=== PATIENT | male | born 1975 | race Caucasian/White ===

== ENCOUNTER 2017-07-09 19:16 | Inpatient (IN) | payer MEDICAID ==
[~2017-07-09] VITALS: Ht 188 cm; Wt 154.0 kg
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
[2017-07-09 19:49] LABS: I-STAT POTASSIUM 4.1 MMOL/L (3.5-4.9)
[2017-07-09 19:53] LABS: AUTOMATED NEUTROPHIL # 18.2 TH/MM3 (1.8-7.7); BASOPHIL % 0.1 % (0.0-2.0); EOSINOPHIL % 0.1 % (0.0-4.0); HEMATOCRIT 42.3 % (39.0-51.0); HEMO FLAGS DIFF FINAL; LYMPH % 4.4 % (9.0-44.0); LYMPHOCYTE # 0.9 TH/MM3 (1.0-4.8); MEAN CELL VOLUME 96.4 FL (80.0-100.0); MEAN CORPUSCULAR HEMOGLOBIN 32.5 PG (27.0-34.0); MEAN CORPUSCULAR HGB CONC 33.7 % (32.0-36.0); MONO % 6.6 % (0.0-8.0); NEUT % 88.8 % (16.0-70.0); PLATELET COUNT 270 TH/MM3 (150-450); RED BLOOD COUNT 4.39 MIL/MM3 (4.50-5.90); RED CELL DISTRIBUTION WIDTH 13.8 % (11.6-17.2); WHITE BLOOD COUNT 20.5 TH/MM3 (4.0-11.0)
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
[2017-07-09 20:04] LABS: APTT (PATIENT) 22.2 SEC (24.3-30.1); PROTHROMBIN TIME - PATIENT 10.6 SEC (9.8-11.6)
[2017-07-09] MEDS ORDERED: Post-op Orders (for Pharmacy) MISC XX ONE (20:15)
[2017-07-09] MEDS ORDERED: NALOXONE HCL 0.4 MG/ML AMP IV PUSH PRN (20:15)
[2017-07-09] MEDS ORDERED: SODIUM CHLORIDE 0.9% FLUSH 10 ML FLUSH IV FLUSH PRN (20:15)
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
[2017-07-09 20:59] VITALS: O2SAT 97
[2017-07-09 21:00] VITALS: BP 117/74; PULSE 108; RESP 32; TEMP 98; O2SAT 96
[2017-07-09] MEDS ORDERED: fentaNYL 75 MCG/HR PATCH T-DERMAL SCH (21:00)
[2017-07-09] MEDS: MORPHINE SULFATE 4 MG/ML INJ IV PUSH PRN (21:03)
[2017-07-09] MEDS: METHOCARBAMOL 500 MG TAB PO SCH (21:03)
[2017-07-09] MEDS: FAMOTIDINE 20 MG TAB PO SCH (21:03)
[2017-07-09] MEDS: ACETAMINOPHEN/HYDROcodone 325 MG/5 MG TAB PO PRN (21:19)
[2017-07-09] MEDS: SODIUM CHLORIDE 0.9% FLUSH 10 ML FLUSH IV FLUSH SCH (21:19)
[2017-07-09 22:00] VITALS: PULSE 106
[2017-07-09] MEDS: SODIUM CHLOR 0.9% 1000 ML INJ 1,000 ML IV SCH (22:25)
[2017-07-10] VITALS (18 sets, daily range): BP systolic 88–117; BP diastolic 51–80; PULSE 96–120; RESP 17–32; TEMP 96.9–100.5; O2SAT 94–100
[2017-07-10] MEDS: MORPHINE SULFATE 4 MG/ML INJ IV PUSH PRN ×3 (00:11→08:15)
[2017-07-10] MEDS: ACETAMINOPHEN/HYDROcodone 325 MG/5 MG TAB PO PRN (04:40)
[2017-07-10] MEDS: METHOCARBAMOL 500 MG TAB PO SCH ×3 (05:42→22:04)
[2017-07-10] MEDS: SODIUM CHLOR 0.9% 1000 ML INJ 1,000 ML IV SCH ×2 (05:43→16:06)
--- NOTE | 2017-07-10 05:45 | RADRPT ---
EXAM DATE/TIME: 07/10/2017 04:13 [facility] COMPARISON: CHEST SINGLE AP, July 09, 2017, 19:21. INDICATIONS : Evaluate for pneumothorax MEDICAL HISTORY : Non obtainable SURGICAL HISTORY : Non obtainable ENCOUNTER: Subsequent ACUITY: 2 days PAIN SCORE: 0/10 LOCATION: Bilateral chest FINDINGS: There is patchy infiltrate in the left infrahilar region with some air bronchograms but no obliterati on of the left hemidiaphragm. The right lung is clear. The heart is upper limits normal size. No p leural reflection seen. Displaced fracture of the posterior left 3rd rib. CONCLUSION: 1. Partially consolidated left lower lung infiltrate. 2. No evidence of pneumothorax on this semierect inspiratory film. Javier Newton MD on July 10, 2017 at 5:41 Board Certified Radiologist. This report was verified electronically.
[2017-07-10 06:44] LABS: BASOPHIL % 0.2 % (0.0-2.0); EOSINOPHIL % 0.1 % (0.0-4.0); HEMATOCRIT 38.7 % (39.0-51.0); HEMO FLAGS DIFF FINAL; LYMPH % 16.8 % (9.0-44.0); LYMPHOCYTE # 1.6 TH/MM3 (1.0-4.8); MEAN CELL VOLUME 98.6 FL (80.0-100.0); MEAN CORPUSCULAR HGB CONC 33.4 % (32.0-36.0); MONO % 11.2 % (0.0-8.0); NEUT % 71.7 % (16.0-70.0); PLATELET COUNT 215 TH/MM3 (150-450); RED BLOOD COUNT 3.92 MIL/MM3 (4.50-5.90); RED CELL DISTRIBUTION WIDTH 14.1 % (11.6-17.2); WHITE BLOOD COUNT 9.8 TH/MM3 (4.0-11.0)
[2017-07-10] MEDS ORDERED: LACTULOSE SYRUP 20 GM/30 ML CUP PO PRN (07:00)
[2017-07-10] MEDS: ACETAMINOPHEN 1000 MG/100 ML 100 ML IV SCH ×3 (07:00→18:18)
[2017-07-10] MEDS ORDERED: RESP: ALBUTEROL 2.5 MG/IPRATROPIUM 0.5 MG NEB (PRN) NEB (07:00)
[2017-07-10 07:11] LABS: BICARBONATE 27.7 MEQ/L (21.0-32.0); POTASSIUM 4.4 MEQ/L (3.5-5.1)
[2017-07-10] MEDS: POLYETHYLENE GLYCOL 17 GM PKG PO SCH (09:00)
[2017-07-10] MEDS: DOCUSATE SODIUM 50 MG/SENNA 8.6 MG TAB PO SCH ×2 (09:00→20:15)
[2017-07-10] MEDS: FAMOTIDINE 20 MG TAB PO SCH ×2 (09:00→20:15)
[2017-07-10] MEDS: LIDOCAINE HCL 5% PATCH T-DERMAL SCH (09:00)
[2017-07-10] MEDS: SODIUM CHLORIDE 0.9% FLUSH 10 ML FLUSH IV FLUSH SCH ×2 (09:00→20:15)
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
[2017-07-10] MEDS: REMOVE OLD PATCH-LIDOCAINE T-DERMAL SCH (20:15)
[2017-07-11] VITALS (16 sets, daily range): BP systolic 112–140; BP diastolic 68–89; PULSE 97–121; RESP 18–23; TEMP 96.2–101; O2SAT 94–100
[2017-07-11] MEDS: ACETAMINOPHEN 1000 MG/100 ML 100 ML IV SCH (01:48)
[2017-07-11] MEDS: MORPHINE SULFATE 4 MG/ML INJ IV PUSH PRN ×6 (01:49→20:45)
[2017-07-11] MEDS: SODIUM CHLOR 0.9% 1000 ML INJ 1,000 ML IV SCH (02:06)
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
[2017-07-11 04:36] LABS: AUTOMATED NEUTROPHIL # 13.9 TH/MM3 (1.8-7.7); BASOPHIL % 0.2 % (0.0-2.0); EOSINOPHIL % 0.2 % (0.0-4.0); HEMATOCRIT 34.5 % (39.0-51.0); HEMO FLAGS DIFF FINAL; LYMPH % 8.5 % (9.0-44.0); LYMPHOCYTE # 1.4 TH/MM3 (1.0-4.8); MEAN CELL VOLUME 96.8 FL (80.0-100.0); MEAN CORPUSCULAR HEMOGLOBIN 32.9 PG (27.0-34.0); MONO % 6.9 % (0.0-8.0); NEUT % 84.2 % (16.0-70.0); PLATELET COUNT 182 TH/MM3 (150-450); RED BLOOD COUNT 3.57 MIL/MM3 (4.50-5.90); RED CELL DISTRIBUTION WIDTH 13.7 % (11.6-17.2); WHITE BLOOD COUNT 16.5 TH/MM3 (4.0-11.0)
[2017-07-11 04:52] LABS: BICARBONATE 26.4 MEQ/L (21.0-32.0); POTASSIUM 4.2 MEQ/L (3.5-5.1)
[2017-07-11] MEDS: METHOCARBAMOL 500 MG TAB PO SCH ×3 (05:19→20:45)
[2017-07-11] MEDS: POLYETHYLENE GLYCOL 17 GM PKG PO SCH (08:02)
[2017-07-11] MEDS: SODIUM CHLORIDE 0.9% FLUSH 10 ML FLUSH IV FLUSH SCH ×2 (08:02→21:00)
[2017-07-11] MEDS: DOCUSATE SODIUM 50 MG/SENNA 8.6 MG TAB PO SCH ×2 (08:03→20:45)
[2017-07-11] MEDS: FAMOTIDINE 20 MG TAB PO SCH ×2 (08:03→20:45)
[2017-07-11] MEDS: LIDOCAINE HCL 5% PATCH T-DERMAL SCH (08:03)
[2017-07-11] MEDS: ENOXAPARIN SODIUM 40 MG/0.4 ML SYRINGE SQ SCH (09:46)
[2017-07-11] MEDS ORDERED: fentaNYL 75 MCG/HR PATCH T-DERMAL SCH (10:00)
[2017-07-11] MEDS ORDERED: ACETAMINOPHEN 325 MG TAB PO PRN (19:00)
[2017-07-11] MEDS ORDERED: ACETAMINOPHEN 1000 MG/100 ML 100 ML IV ONE (19:00)
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
[2017-07-11 19:26] LABS: BLOOD GAS BASE EXCESS 2.6 mmol/L (-2-2); BLOOD GAS CARBOXYHEMOGLOBIN 1.7 % (0-4); BLOOD GAS HCO3 28 mmol/L (22-26); BLOOD GAS METHEMOGLOBIN 0.8 % (0-2); BLOOD GAS O2 HGB SATURATION 96 % (90-100); BLOOD GAS OXYGEN CONTENT 15.7 Vol % (12.0-20.0); BLOOD GAS PCO2 58 mmHg (38-42); BLOOD GAS PO2 116 mmHg (61-120); BLOOD GAS TOTAL HGB 11.5 G/DL (12.0-16.0); TEMP CORR TO 98.6
[2017-07-11 19:27] LABS: CRITICAL VALUE YES; DRAW SITE RT RADIAL; FIO2 40 %; NUMBER OF ARTERIAL PUNCTURES 1; OXYGEN DEVICE BIPAP; STAT YES; ULNAR PULSE PRESENT; VENT SETTINGS 10/+5
--- NOTE | 2017-07-11 19:53 | RADRPT ---
EXAM DATE/TIME: 07/11/2017 19:14 [facility] COMPARISON: CHEST SINGLE AP, July 11, 2017, 3:51. INDICATIONS : Respiratory distress MEDICAL HISTORY : Rib fractures SURGICAL HISTORY : None. ENCOUNTER: Subsequent ACUITY: 3 days PAIN SCORE: 7/10 LOCATION: chest FINDINGS: The study is of limited diagnostic quality with indistinctness of the structures of the left chest, p robably due to mild motion. There is consolidation in the left lower lung and loss of delineation of the entire left hemidiaphragm suggesting increasing consolidative infiltrate and pleural effusion. A definite pleural reflection is not seen at the left upper lung, but this is a semierect view and a large tube structure superimposes upon the left apex. No evidence of mediastinal shift. The right l keturah is clear. Multiple left upper rib fractures. The heart is similar in size to prior. CONCLUSION: 1. Increasing consolidation and probable pleural effusion left lower chest. 2. Stable displaced left rib fractures. Javier Newton MD on July 11, 2017 at 19:49 Board Certified Radiologist. This report was verified electronically.
[2017-07-11 20:38] LABS: AUTOMATED NEUTROPHIL # 13.6 TH/MM3 (1.8-7.7); EOSINOPHIL % 0.1 % (0.0-4.0); HEMATOCRIT 35.2 % (39.0-51.0); HEMO FLAGS DIFF FINAL; LYMPH % 6.5 % (9.0-44.0); MEAN CELL VOLUME 96.6 FL (80.0-100.0); MEAN CORPUSCULAR HEMOGLOBIN 31.7 PG (27.0-34.0); MEAN CORPUSCULAR HGB CONC 32.8 % (32.0-36.0); MONO % 6.3 % (0.0-8.0); NEUT % 87.1 % (16.0-70.0); PLATELET COUNT 196 TH/MM3 (150-450); RED BLOOD COUNT 3.64 MIL/MM3 (4.50-5.90); RED CELL DISTRIBUTION WIDTH 13.9 % (11.6-17.2); WHITE BLOOD COUNT 15.6 TH/MM3 (4.0-11.0)
[2017-07-11] MEDS: ONDANSETRON HCL 4 MG/2 ML VIAL IV PUSH PRN (20:45)
[2017-07-11 20:46] LABS: ANION GAP 8 MEQ/L (5-15); AST (GOT) 62 U/L (15-37); BICARBONATE 24.7 MEQ/L (21.0-32.0); BLOOD UREA NITROGEN 10 MG/DL (7-18); CHLORIDE 101 MEQ/L (98-107); GLOMERULAR FILTRATION RATE 106 ML/MIN (>89); POTASSIUM 4.4 MEQ/L (3.5-5.1); SODIUM (NA) 134 MEQ/L (136-145)
[2017-07-11 20:47] LABS: ALT (GPT) 60 U/L (12-78)
[2017-07-11 20:49] LABS: ALKALINE PHOSPHATASE 55 U/L (45-117); TOTAL BILIRUBIN ADULT 0.6 MG/DL (0.2-1.0)
[2017-07-11] MEDS: REMOVE OLD PATCH-LIDOCAINE T-DERMAL SCH (21:00)
[2017-07-12] VITALS (18 sets, daily range): BP systolic 114–142; BP diastolic 59–77; PULSE 88–110; RESP 14–20; TEMP 97.6–99.8; O2SAT 91–100
[2017-07-12] MEDS: MORPHINE SULFATE 4 MG/ML INJ IV PUSH PRN ×4 (00:31→16:59)
[2017-07-12 04:12] LABS: AUTOMATED NEUTROPHIL # 16.4 TH/MM3 (1.8-7.7); BASOPHIL % 0.2 % (0.0-2.0); EOSINOPHIL % 0.1 % (0.0-4.0); HEMATOCRIT 34.5 % (39.0-51.0); HEMO FLAGS DIFF FINAL; LYMPH % 4.1 % (9.0-44.0); LYMPHOCYTE # 0.8 TH/MM3 (1.0-4.8); MEAN CORPUSCULAR HEMOGLOBIN 32.1 PG (27.0-34.0); MEAN CORPUSCULAR HGB CONC 33.1 % (32.0-36.0); MONO % 6.3 % (0.0-8.0); NEUT % 89.3 % (16.0-70.0); PLATELET COUNT 195 TH/MM3 (150-450); RED BLOOD COUNT 3.56 MIL/MM3 (4.50-5.90); RED CELL DISTRIBUTION WIDTH 13.4 % (11.6-17.2); WHITE BLOOD COUNT 18.4 TH/MM3 (4.0-11.0)
[2017-07-12 04:31] LABS: BICARBONATE 30.4 MEQ/L (21.0-32.0)
--- NOTE | 2017-07-12 04:37 | RADRPT ---
EXAM DATE/TIME: 07/12/2017 04:21 [facility] COMPARISON: CHEST SINGLE AP, July 11, 2017, 19:14. INDICATIONS : Short of breath. MEDICAL HISTORY : None. SURGICAL HISTORY : None. ENCOUNTER: Subsequent ACUITY: 3 days PAIN SCORE: Non-responsive. LOCATION: Bilateral chest FINDINGS: Left perihilar and basilar consolidation with a small pleural effusion all modestly improved in the i nterim. Right lung remains reasonably clear. Heart size stable, upper limits of normal. No pneumothorax. CONCLUSION: Decreased left consolidation and small effusion. Puma Gonzalez MD on July 12, 2017 at 4:35 Board Certified Radiologist. This report was verified electronically.
[2017-07-12 04:54] LABS: BLOOD GAS BASE EXCESS 2.9 mmol/L (-2-2); BLOOD GAS CARBOXYHEMOGLOBIN 1.4 % (0-4); BLOOD GAS HCO3 31 mmol/L (22-26); BLOOD GAS METHEMOGLOBIN 0.9 % (0-2); BLOOD GAS O2 HGB SATURATION 95 % (90-100); BLOOD GAS OXYGEN CONTENT 15.8 Vol % (12.0-20.0); BLOOD GAS PCO2 87 mmHg (38-42); BLOOD GAS PO2 109 mmHg (61-120); BLOOD GAS TOTAL HGB 11.7 G/DL (12.0-16.0); TEMP CORR TO 98.6
[2017-07-12 04:55] LABS: CRITICAL VALUE YES; DRAW SITE RT RADIAL; FIO2 40 %; NUMBER OF ARTERIAL PUNCTURES 1; OXYGEN DEVICE BIPAP; STAT NO; ULNAR PULSE PRESENT; VENT SETTINGS IPAP15/EPAP5
[2017-07-12] MEDS: METHOCARBAMOL 500 MG TAB PO SCH ×3 (06:00→21:03)
[2017-07-12] MEDS: ONDANSETRON HCL 4 MG/2 ML VIAL IV PUSH PRN ×2 (06:26→19:23)
[2017-07-12 07:08] LABS: BACTERIA, URINE OCC /hpf; BLOOD, URINE MOD (NEG); COMMENT (UR) CULTURE INDICATED; CULTURE IF INDICATED CULTURE INDICATED; GLUCOSE,URINE NEG (NEG); GRANULAR CAST, URINE 6 /lpf; HYALINE CAST, URINE 14 /lpf (RARE); KETONE, URINE NEG (NEG); MUCUS URINE MOD /lpf (OCC); NITRITE,URINE NEG (NEG); SQUAMOUS EPITHELIAL CELL URINE 2 /hpf (0-5); URINE COLOR YELLOW (YELLW/STRAW)
[2017-07-12] MEDS: SODIUM CHLORIDE 0.9% FLUSH 10 ML FLUSH IV FLUSH SCH ×2 (08:57→20:35)
[2017-07-12] MEDS: FAMOTIDINE 20 MG TAB PO SCH ×3 (08:57→20:35)
[2017-07-12] MEDS: POLYETHYLENE GLYCOL 17 GM PKG PO SCH (08:57)
[2017-07-12] MEDS: DOCUSATE SODIUM 50 MG/SENNA 8.6 MG TAB PO SCH ×3 (08:57→20:35)
[2017-07-12] MEDS: SODIUM CHLOR 0.9% 1000 ML INJ 1,000 ML IV SCH (09:15)
[2017-07-12] MEDS: ENOXAPARIN SODIUM 40 MG/0.4 ML SYRINGE SQ SCH (10:53)
[2017-07-12] MEDS: cefTRIAXone INJ 1,000 MG in SODIUM CHLORIDE 0.9% INJ 100 ML IV SCH (10:53)
[2017-07-12 12:04] LABS: BLOOD GAS BASE EXCESS 2.3 mmol/L (-2-2); BLOOD GAS CARBOXYHEMOGLOBIN 1.4 % (0-4); BLOOD GAS HCO3 28 mmol/L (22-26); BLOOD GAS METHEMOGLOBIN 0.8 % (0-2); BLOOD GAS O2 HGB SATURATION 96 % (90-100); BLOOD GAS OXYGEN CONTENT 15.6 Vol % (12.0-20.0); BLOOD GAS PCO2 58 mmHg (38-42); BLOOD GAS PO2 100 mmHg (61-120); BLOOD GAS TOTAL HGB 11.5 G/DL (12.0-16.0); TEMP CORR TO 98.6
[2017-07-12 12:05] LABS: CRITICAL VALUE YES
[2017-07-12 12:06] LABS: DRAW SITE RT RADIAL; FIO2 40 %; NUMBER OF ARTERIAL PUNCTURES 2; OXYGEN DEVICE BIPAP; STAT NO; ULNAR PULSE PRESENT; VENT SETTINGS IPAP 20/EPAP 8
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
[2017-07-12] MEDS: REMOVE OLD PATCH-LIDOCAINE T-DERMAL SCH (20:42)
[2017-07-12] MEDS ORDERED: REMOVE OLD PATCH T-DERMAL SCH (21:00)
[2017-07-13] VITALS (19 sets, daily range): BP systolic 102–127; BP diastolic 60–76; PULSE 82–114; RESP 14–20; TEMP 96.9–99.8; O2SAT 94–100
[2017-07-13] MEDS: SODIUM CHLOR 0.9% 1000 ML INJ 1,000 ML IV SCH ×2 (01:27→18:35)
[2017-07-13] MEDS: MORPHINE SULFATE 4 MG/ML INJ IV PUSH PRN (01:49)
[2017-07-13 04:47] LABS: AUTOMATED NEUTROPHIL # 9.8 TH/MM3 (1.8-7.7); BASOPHIL % 0.3 % (0.0-2.0); EOSINOPHIL # 0.1 TH/MM3 (0-0.4); EOSINOPHIL % 0.6 % (0.0-4.0); HEMATOCRIT 29.8 % (39.0-51.0); HEMO FLAGS DIFF FINAL; LYMPH % 8.6 % (9.0-44.0); LYMPHOCYTE # 1.1 TH/MM3 (1.0-4.8); MEAN CELL VOLUME 96.3 FL (80.0-100.0); MEAN CORPUSCULAR HEMOGLOBIN 32.7 PG (27.0-34.0); MEAN CORPUSCULAR HGB CONC 33.9 % (32.0-36.0); MONO % 10.6 % (0.0-8.0); NEUT % 79.9 % (16.0-70.0); PLATELET COUNT 209 TH/MM3 (150-450); RED CELL DISTRIBUTION WIDTH 13.5 % (11.6-17.2); WHITE BLOOD COUNT 12.2 TH/MM3 (4.0-11.0)
[2017-07-13 05:20] LABS: ALKALINE PHOSPHATASE 50 U/L (45-117); ALT (GPT) 44 U/L (12-78); ANION GAP 4 MEQ/L (5-15); AST (GOT) 39 U/L (15-37); BICARBONATE 32.6 MEQ/L (21.0-32.0); BLOOD UREA NITROGEN 14 MG/DL (7-18); CHLORIDE 99 MEQ/L (98-107); GLOMERULAR FILTRATION RATE 135 ML/MIN (>89); POTASSIUM 4.1 MEQ/L (3.5-5.1); SODIUM (NA) 136 MEQ/L (136-145); TOTAL BILIRUBIN ADULT 0.6 MG/DL (0.2-1.0)
[2017-07-13] MEDS: METHOCARBAMOL 500 MG TAB PO SCH ×3 (05:45→21:25)
--- NOTE | 2017-07-13 08:12 | RADRPT ---
EXAM DATE/TIME: 07/13/2017 07:38 [facility] COMPARISON: CHEST SINGLE AP, July 12, 2017, 4:21. INDICATIONS : Chest pain; multiple rib fractures. MEDICAL HISTORY : None. SURGICAL HISTORY : None. ENCOUNTER: Subsequent ACUITY: 4 - 6 days PAIN SCORE: 8/10 LOCATION: Left chest FINDINGS: Low lung volumes which accentuate interstitial markings. Redemonstration of air space consolidation i n the left lung base and likely trace associated effusion. Cardiomediastinal contours are stable give n differences in technique. Redemonstration of left-sided rib fractures. Remainder of the exam is unc hanged. CONCLUSION: 1. No significant interval change. 2. Left lung base airspace consolidation and associated small pleural effusion. 3. Left-sided rib fractures without significant pneumothorax. Steve Olvera MD on July 13, 2017 at 8:09 Board Certified Radiologist. This report was verified electronically.
[2017-07-13] MEDS: POLYETHYLENE GLYCOL 17 GM PKG PO SCH (09:00)
[2017-07-13] MEDS: SODIUM CHLORIDE 0.9% FLUSH 10 ML FLUSH IV FLUSH SCH ×2 (09:00→21:00)
[2017-07-13] MEDS: FAMOTIDINE 20 MG TAB PO SCH ×2 (09:59→21:25)
[2017-07-13] MEDS: DOCUSATE SODIUM 50 MG/SENNA 8.6 MG TAB PO SCH ×2 (09:59→21:00)
[2017-07-13] MEDS: RESP: ALBUTEROL 2.5 MG/IPRATROPIUM 0.5 MG NEB (SCH) NEB ×3 (10:00→19:46)
[2017-07-13] MEDS: ENOXAPARIN SODIUM 40 MG/0.4 ML SYRINGE SQ SCH (10:00)
[2017-07-13] MEDS: cefTRIAXone INJ 1,000 MG in SODIUM CHLORIDE 0.9% INJ 100 ML IV SCH (10:00)
[2017-07-13 12:46] LABS: HEMOGLOBIN A1a 1.4 %; HEMOGLOBIN A1b 1.6 %; HEMOGLOBIN Ao 85.8 %; HEMOGLOBIN LA1C 1.9 %; HEMOGLOBIN P3 3.3 %
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
[2017-07-13] MEDS ORDERED: LACTULOSE SYRUP 20 GM/30 ML CUP PO ONE (15:00)
[2017-07-13] MEDS: REMOVE OLD PATCH-LIDOCAINE T-DERMAL SCH (21:00)
[2017-07-13] MEDS: REMOVE OLD DURAGESIC (FENTANYL) PATCH T-DERMAL SCH (22:00)
[2017-07-13] MEDS: fentaNYL 75 MCG/HR PATCH T-DERMAL SCH (22:19)
[2017-07-14] VITALS (15 sets, daily range): BP systolic 106–118; BP diastolic 60–66; PULSE 74–104; RESP 15–20; TEMP 96.1–98; O2SAT 93–100
[2017-07-14] MEDS: RESP: ALBUTEROL 2.5 MG/IPRATROPIUM 0.5 MG NEB (SCH) NEB ×4 (04:12→20:49)
[2017-07-14 05:37] LABS: AUTOMATED NEUTROPHIL # 6.6 TH/MM3 (1.8-7.7); BASOPHIL % 0.3 % (0.0-2.0); EOSINOPHIL # 0.2 TH/MM3 (0-0.4); EOSINOPHIL % 1.9 % (0.0-4.0); HEMATOCRIT 29.3 % (39.0-51.0); HEMO FLAGS DIFF FINAL; LYMPH % 18.7 % (9.0-44.0); LYMPHOCYTE # 1.8 TH/MM3 (1.0-4.8); MEAN CELL VOLUME 96.3 FL (80.0-100.0); MEAN CORPUSCULAR HEMOGLOBIN 33.3 PG (27.0-34.0); MEAN CORPUSCULAR HGB CONC 34.6 % (32.0-36.0); MONO % 10.6 % (0.0-8.0); NEUT % 68.5 % (16.0-70.0); PLATELET COUNT 222 TH/MM3 (150-450); RED BLOOD COUNT 3.04 MIL/MM3 (4.50-5.90); RED CELL DISTRIBUTION WIDTH 13.3 % (11.6-17.2); WHITE BLOOD COUNT 9.6 TH/MM3 (4.0-11.0)
[2017-07-14 05:57] LABS: BICARBONATE 33.2 MEQ/L (21.0-32.0); POTASSIUM 3.4 MEQ/L (3.5-5.1)
--- NOTE | 2017-07-14 06:21 | RADRPT ---
EXAM DATE/TIME: 07/14/2017 02:54 [facility] COMPARISON: CHEST SINGLE AP, July 13, 2017, 7:38. INDICATIONS : Difficulty breathing. MEDICAL HISTORY : None. SURGICAL HISTORY : None. ENCOUNTER: Subsequent ACUITY: 4 - 6 days PAIN SCORE: 0/10 LOCATION: Bilateral chest FINDINGS: Right lung now clear but there is increased consolidation with small pleural effusion on the left. No pneumothorax. Heart size stable, upper limits of normal. CONCLUSION: Fairly diffuse airspace opacities with a small pleural effusion on the left. Puma Gonzalez MD on July 14, 2017 at 6:19 Board Certified Radiologist. This report was verified electronically.
[2017-07-14] MEDS: METHOCARBAMOL 500 MG TAB PO SCH ×3 (06:29→23:07)
[2017-07-14] MEDS ORDERED: POTASSIUM CHLORIDE 10 MEQ CONTROLLED RELEASE TAB PO ONE (07:30)
[2017-07-14] MEDS: POLYETHYLENE GLYCOL 17 GM PKG PO SCH (09:00)
[2017-07-14] MEDS: FAMOTIDINE 20 MG TAB PO SCH ×2 (09:41→19:36)
[2017-07-14] MEDS: SODIUM CHLORIDE 0.9% FLUSH 10 ML FLUSH IV FLUSH SCH ×2 (09:41→19:36)
[2017-07-14] MEDS: DOCUSATE SODIUM 50 MG/SENNA 8.6 MG TAB PO SCH ×2 (09:42→19:36)
[2017-07-14] MEDS ORDERED: PILL SPLITTER OTHER PRN (09:45)
[2017-07-14] MEDS ORDERED: REMOVE OLD DURAGESIC (FENTANYL) PATCH T-DERMAL SCH (10:00)
[2017-07-14] MEDS: ENOXAPARIN SODIUM 40 MG/0.4 ML SYRINGE SQ SCH ×2 (11:26→23:07)
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
[2017-07-14] MEDS: IBUPROFEN 600 MG TAB PO SCH ×2 (18:52→19:00)
[2017-07-14] MEDS: REMOVE OLD PATCH-LIDOCAINE T-DERMAL SCH (19:37)
[2017-07-15] VITALS (10 sets, daily range): BP systolic 94–137; BP diastolic 60–96; PULSE 70–104; RESP 16–20; TEMP 96.2–98.8; O2SAT 92–100
[2017-07-15] MEDS: IBUPROFEN 600 MG TAB PO SCH ×3 (02:49→16:51)
[2017-07-15] MEDS: RESP: ALBUTEROL 2.5 MG/IPRATROPIUM 0.5 MG NEB (SCH) NEB ×4 (03:33→20:54)
[2017-07-15] MEDS: METHOCARBAMOL 500 MG TAB PO SCH ×3 (05:47→20:24)
[2017-07-15] MEDS: FAMOTIDINE 20 MG TAB PO SCH ×2 (07:54→20:23)
[2017-07-15] MEDS: DOCUSATE SODIUM 50 MG/SENNA 8.6 MG TAB PO SCH ×2 (07:54→20:23)
[2017-07-15] MEDS: POLYETHYLENE GLYCOL 17 GM PKG PO SCH (09:00)
[2017-07-15] MEDS: SODIUM CHLORIDE 0.9% FLUSH 10 ML FLUSH IV FLUSH SCH ×2 (10:08→20:28)
[2017-07-15] MEDS: ENOXAPARIN SODIUM 40 MG/0.4 ML SYRINGE SQ SCH ×2 (11:56→20:27)
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
[2017-07-16] VITALS: BP 97/65; PULSE 90; RESP 19; TEMP 98.5; O2SAT 98
[2017-07-16] MEDS: IBUPROFEN 600 MG TAB PO SCH ×2 (01:14→09:00)
[2017-07-16 04:00] VITALS: BP 110/64; PULSE 83; RESP 19; TEMP 96.3; O2SAT 97
[2017-07-16] MEDS: RESP: ALBUTEROL 2.5 MG/IPRATROPIUM 0.5 MG NEB (SCH) NEB ×3 (04:38→15:36)
[2017-07-16] MEDS: METHOCARBAMOL 500 MG TAB PO SCH ×2 (05:09→14:40)
[2017-07-16 08:00] VITALS: BP 113/72; PULSE 94; RESP 19; TEMP 96.8; O2SAT 93
[2017-07-16 09:00] VITALS: O2SAT 95
[2017-07-16] MEDS: SODIUM CHLORIDE 0.9% FLUSH 10 ML FLUSH IV FLUSH SCH (09:00)
[2017-07-16] MEDS: POLYETHYLENE GLYCOL 17 GM PKG PO SCH (09:00)
[2017-07-16] MEDS: FAMOTIDINE 20 MG TAB PO SCH (09:00)
[2017-07-16] MEDS: DOCUSATE SODIUM 50 MG/SENNA 8.6 MG TAB PO SCH (09:00)
[2017-07-16] MEDS: ENOXAPARIN SODIUM 40 MG/0.4 ML SYRINGE SQ SCH (10:49)
[2017-07-16 12:00] VITALS: BP 112/61; PULSE 70; RESP 18; TEMP 97.1; O2SAT 94
[2017-07-16] MEDS ORDERED: IBUP-232 PO (12:54)
[2017-07-16] MEDS ORDERED: PERC10TA27 PO (12:54)
[2017-07-16] MEDS ORDERED: PERI PO (12:54)
[2017-07-16] MEDS ORDERED: METH500T3 PO (12:54)
[2017-07-16 16:00] VITALS: BP 117/65; PULSE 101; RESP 18; TEMP 97.2; O2SAT 93
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
[2017-07-16] MEDS: fentaNYL 75 MCG/HR PATCH T-DERMAL SCH (17:54)
[2017-07-16] MEDS: REMOVE OLD DURAGESIC (FENTANYL) PATCH T-DERMAL SCH (17:55)
--- NOTE | 2017-07-19 11:11 | RSPPFT ---
DATE OF PROCEDURE: 07/16/17 COMMENTS: Spirometry shows FVC of 2.7 at 48% of predicted, FEV1 of 2.2 at 47%, FEV1/FVC ratio is normal. Flow is decreased at FEF 25, FEF 50, FEF 75 and FEF 25-75. Flow volume is suggestive of a restrictive pattern. IMPRESSION: 1. Mild small airways obstructive lung disease. 2. Underlying restrictive disease is not ruled out by this study. 3. Patient will need a complete pulmonary function study for further evaluation.
== END 2017-07-16 18:12 | disposition home or self-care (01) | DRG 963 ==
LOC: NEPI 19:16 → EDBD 19:45 → NEDA 19:45 → N03A 20:51 → N06A 07-11 11:11 → N03A 07-11 19:31 → N07B 07-14 14:57
PROVIDERS: ADMIT Surgery; ATTEND Surgery
PROC: 5A09457 Assistance with Respiratory Ventilation, 24-96 Consecutive Hours, Continuous Positive Airway Pressure (ICD-10-PCS; principal; 2017-07-11)
DX: S36.039A Unspecified laceration of spleen, initial encounter (principal); K66.1 Hemoperitoneum; S27.0XXA Traumatic pneumothorax, initial encounter; S22.5XXA Flail chest, initial encounter for closed fracture; J90 Pleural effusion, not elsewhere classified; S27.2XXA Traumatic hemopneumothorax, initial encounter; E87.2 Acidosis; S30.1XXA Contusion of abdominal wall, initial encounter; V28.4XXA Motorcycle driver injured in noncollision transport accident in traffic accident, initial encounter; Y92.410 Unspecified street and highway as the place of occurrence of the external cause; G47.33 Obstructive sleep apnea (adult) (pediatric); J44.9 Chronic obstructive pulmonary disease, unspecified; E66.01 Morbid (severe) obesity due to excess calories; Z72.0 Tobacco use
CPT/HCPCS: 36600; 71010; 71250; 72170; 74176; 80048; 80053; 81001; 82435; 82565; 82805; 82947; 83036; 83605; 84132; 84295; 84520; 85025; 85610; 85730; 86850; 86900; 86901; 86920; 87040; 87086; 87641; 94002; 94003; 94010; 94150; 94640; 94664; 94667; 94668; 99291; G0390; J0131; J0696; J1650; J2270; J2405; J7030